=== PATIENT | female | born 1970 | race Caucasian/White ===

== ENCOUNTER 2024-05-30 16:40 | Emergency (ER) | payer BC ==
[2024-05-30] MEDS ORDERED: TRAMADOL HCL50 MG PO (16:54)
[2024-05-30] MEDS ORDERED: FLUOXETINE HCL20 MG PO (16:55)
[2024-05-30] MEDS ORDERED: METHOCARBAMOL750 MG PO (16:56)
[2024-05-30] MEDS ORDERED: FUROSEMIDE20 MG PO (16:56)
[2024-05-30] MEDS ORDERED: PROPRANOLOL HCL10 MG PO (16:57)
[2024-05-30] MEDS ORDERED: POTASSIUM CHLO10 MEQ PO (16:57)
[2024-05-30] MEDS ORDERED: PREGABALIN75 MG PO (16:58)
[2024-05-30] MEDS ORDERED: CELECOXIB200 MG PO (16:58)
[2024-05-30] MEDS ORDERED: VENTOLIN HFA18 GM INH (16:59)
[2024-05-30 18:20] VITALS: BP 44/71
== END 2024-05-30 18:20 ==
LOC: ED 16:40
DX: S92.355A Nondisplaced fracture of fifth metatarsal bone, left foot, initial encounter for closed fracture (principal); S09.90XA Unspecified injury of head, initial encounter; Z79.899 Other long term (current) drug therapy
CPT/HCPCS: 73630; 99283

== ENCOUNTER 2024-06-10 08:00 | Day surgery (SDC) | payer BC ==
[~2024-06-10] VITALS: Ht 157.5 cm; Wt 111.4 kg
[~2024-06-10 08:00] MED LIST: CALCIUM-FOLIC1 EACH PO; CEFAZOLIN SODIUM 2 GM/20 ML SYR IV SCH; CELECOXIB200 MG PO; FLAX OIL PO; FLUOXETINE HCL20 MG PO; FUROSEMIDE20 MG PO; HYDROCODON-ACE1 EA10 PO; IBLOOD GLUCOSE TEST STRIP 1 EA TEST VI PRN; LACTATED RINGER'S 1,000 ML IV SCH; LIDOCAINE HCL 1% 5 ML SDV INJ ONE; METHOCARBAMOL750 MG PO; MULTI VITAMIN1 EACH PO; POTASSIUM CHLO10 MEQ PO; PREGABALIN75 MG PO; PROPRANOLOL HCL10 MG PO; TRAMADOL HCL50 MG PO; VENTOLIN HFA18 GM INH; ZINC30 M1 PO
[2024-06-10] MEDS ORDERED: DEXAMETHASONE SOD PHOS 4 MG/ML VIAL ONE ×2 (08:22→10:45)
[2024-06-10] MEDS ORDERED: propofoL 200 MG/20 ML VIAL ONE (08:22)
[2024-06-10] MEDS ORDERED: MIDAZOLAM HCL 2 MG/2 ML VIAL ONE (08:22)
[2024-06-10] MEDS ORDERED: SODIUM CHLORIDE 0.9% 20 ML IV ONE (08:22)
[2024-06-10] MEDS ORDERED: Ropivacaine HCl 0.5% 30 ML VIAL ONE (08:22)
[2024-06-10] MEDS ORDERED: LIDOCAINE HCL 2% 5 ML SDV ONE (08:22)
[2024-06-10] MEDS ORDERED: LASIX20 MG PO (08:31)
[2024-06-10 08:39] VITALS: BP 149/96
[2024-06-10] MEDS ORDERED: NALOXONE HCL 0.4 MG SYR IV PRN (09:00)
[2024-06-10] MEDS ORDERED: IBLOOD GLUCOSE TEST STRIP 1 EA TEST VI PRN (09:00)
[2024-06-10] MEDS ORDERED: ondansetron HCL 4 MG/2 ML VIAL IV PRN (09:00)
[2024-06-10] MEDS ORDERED: fentaNYL citrate 50 MCG/ML SDV IV PRN (09:00)
[2024-06-10] MEDS ORDERED: SEVOFLURANE 250 ML BTL INH ONE (09:13)
[2024-06-10] MEDS ORDERED: fentaNYL citrate 100 MCG/2 ML VIAL ONE (10:14)
[2024-06-10] MEDS ORDERED: KETOROLAC TROMETHAMINE 30 MG/ML VIAL ONE (10:45)
[2024-06-10] MEDS ORDERED: ondansetron HCL 4 MG/2 ML VIAL ONE (10:45)
[2024-06-10] MEDS ORDERED: LACTATED RINGER'S 1,000 ML IV ONE (10:50)
[2024-06-10] MEDS ORDERED: ACETAMINOPHEN 1,000 MG/100 ML VIAL ONE (10:50)
[2024-06-10] MEDS ORDERED: HYDROCODON-ACE1 EA10 PO (11:10)
[2024-06-10] MEDS ORDERED: ASPIRIN325 MG PO (11:10)
[2024-06-10] MEDS ORDERED: HYDROCODONE/ACETA 5/325 TAB PO PRN (11:15)
[2024-06-10] MEDS ORDERED: KETOROLAC TROMETHAMINE 15 MG/ML VIAL IV PRN (11:15)
--- NOTE | 2024-06-10 11:28 | NUR ---
06/10/24 Clara8 Hiral Rothman 1109- PT PRESENTS TO PACU, SEMI OROZCO POSITION. OPA IN PLACE, PT OPENS EYES WITH STIMULUS, OPA REMOVED. O2 REMAINS AT 6L PER MASK, BREATHING EVEN AND NON LABORED. LR INFUSING TO RFA IV. FX BOOT IN PLACE TO LEFT FOOT, PT IS ABLE TO MOVE TOES AND FULL SENSATION, DRESSING CDI. ICE PLACED TO SURGICAL SITE. ABD SOFT, NON DISTENDED. ALL MONITORS IN PLACE. 1116- PT MOVED TO ROOM AIR, HEAD OF BED ELEVATED. PT HAS NO COMPLAINTS. 1124- PT SAT UP IN BED, ICE WATER PROVIDED, TOLERATING WELL. WARM BLANKETS, PLAN OF CARE DISCUSSED.
[2024-06-10 11:40] VITALS: BP 125/66
--- NOTE | 2024-06-10 11:48 | NUR ---
1140 PT BACK TO DS FROM PACU AWAKE AND ALERT SHE DENIES NAUSEA. PT REPORTS PAIN UNCOMFORTABLE AT 2/10 NORCO GIVEN. PT DRINKING WATER AND EATING JELLO. HER SISTER IS AT BEDSIDE. CALL LIGHT WITHIN REACH. PT GIVEN WARM BLACKETS. VELCRO ON FX BOOT OPENED TO PLACE ICE ON LT FOOT.
[2024-06-10 12:42] VITALS: BP 151/77
--- NOTE | 2024-06-10 12:44 | NUR ---
PT AWAKE AND ALERT REPORTS PAIN IS TOLERABLE, PT DRINKING PEPSI SHE BROUGHT FROM HOME. DISCHARGE INSTRUCTIONS GIVEN TO PT AND HER SISTER BOTH VOICED UNDERSTANDING. HER SISTER HELPED HER GET DRESSED.
[2024-06-10] MEDS ORDERED: SENNOSIDES 1 TAB PO SCH (21:00)
[2024-06-10] MEDS ORDERED: ASPIRIN 325 MG TAB PO SCH (21:00)
--- NOTE | 2024-06-11 06:42 | OR ---
[facility] [address], [place] [address] Signed DATE OF OPERATION: 06/10/2024 SURGEON: Anh Trujillo MD PREOPERATIVE DIAGNOSIS: Proximal fifth metatarsal fracture, left. POSTOPERATIVE DIAGNOSIS: Proximal fifth metatarsal fracture, left. PROCEDURE PERFORMED: Open reduction and internal fixation of left fifth metatarsal. RINK RAT: None. ANESTHESIA: General. BLOOD LOSS: Minimal. TOURNIQUET TIME: Zero. IMPLANTS: 4.0 x 54 Synthes headless screw. BRIEF HISTORY: Estephania is a 54-year-old female with proximal fifth metatarsal fracture. This was initially nondisplaced. However, it did displace by the time she made it to the office indicating instability. Risks and benefits of operative treatment were discussed with her and she elected to proceed. DESCRIPTION OF PROCEDURE: Once consent was obtained she was taken to the operating room. After adequate anesthesia she was placed on the operating room table with a hip bump. Leg was then prepped and draped in a standard sterile fashion. A 1.5 cm incision was made proximal to the fifth metatarsal head. The guide pin for the Synthes set was then advanced from the proximal into the metatarsal down the center of the shaft. This took multiple Electronically Signed By: ANH TRUJILLO MD 06/11/24 0642 PATIENT NAME: ESTEPHANIA ROSADO OPERATIVE REPORT DATE OF : 68 REPORT #: [id number] PHYSICIAN: ANH TRUJILLO MD PCP: BRET NAIR DO REPORT IS CONFIDENTIAL AND NOT TO BE RELEASED WITHOUT AUTHORIZATION [facility] [address] [place], [place] [address] Signed passes due to the patient's body habitus. Once we got it centered in the appropriate position, it was then measured and drilled. 54 screw was then placed over the guide pin and advanced until it was well-seated in the metatarsal head. Excellent compression was obtained. Her bone was relatively soft. The guide pin was removed. Final radiographs showed good reduction and good compression and good alignment. Skin was then closed with destini and dressed with all Allevyn and an Sam wrap. She was placed back into a fracture boot. She tolerated the procedure well. All sponge, needle, and instrument counts were correct. Anh Trujillo MD BA/DESTINIL /[id number] Copies: ~ Electronically Signed By: ANH TRUJILLO MD 06/11/24 0642 PATIENT NAME: ESTEPHANIA ROSADO OPERATIVE REPORT DATE OF : 68 REPORT #: [id number] PHYSICIAN: ANH TRUJILLO MD PCP: BRET NAIR DO REPORT IS CONFIDENTIAL AND NOT TO BE RELEASED WITHOUT AUTHORIZATION
== END 2024-06-10 13:00 | disposition home or self-care (01) ==
LOC: DS 08:00
PROVIDERS: ATTEND Specialist
PROC: 0QSP04Z Reposition Left Metatarsal with Internal Fixation Device, Open Approach (ICD-10-PCS; principal; 2024-06-10 11:00)
DX: S92.352A Displaced fracture of fifth metatarsal bone, left foot, initial encounter for closed fracture (principal); X58.XXXA Exposure to other specified factors, initial encounter; Z79.899 Other long term (current) drug therapy
CPT/HCPCS: 01480; 73620; C1713; C1769; J0131; J0690; J1100; J1885; J2003; J2250; J2405; J2704; J2795; J3010; J7121